=== PATIENT | male | born 1960 | race Caucasian/White ===

== ENCOUNTER 2021-01-28 15:19 | Inpatient (IN) | payer OTHER, BC ==
[~2021-01-28] VITALS: Ht 180.3 cm; Wt 101.2 kg
[~2021-01-28 15:19] MED LIST: ASPIRIN81 MG PO; BUSPAR5 MG PO; CLARITIN10 MG PO; HYDROCODONE BIT1 T11 PO; MOTRIN800 MG PO; TIZANIDINE HCL4 MG PO; XANAX0.5 MG PO
[2021-01-28 15:20] VITALS: BP 110/70
[2021-01-28 20:00] VITALS: BP 108/86
[2021-01-29] VITALS: BP 100/74
[2021-01-29 02:00] VITALS: BP 113/80
[2021-01-29 04:45] VITALS: BP 109/82
== END 2021-01-29 21:39 | DRG 177 ==
LOC: ICCU 15:19
PROVIDERS: ADMIT Internal Medicine; ATTEND Internal Medicine
PROC: 5A09357 Assistance with Respiratory Ventilation, Less than 24 Consecutive Hours, Continuous Positive Airway Pressure (ICD-10-PCS; principal; 2021-01-28)
DX: U07.1 COVID-19 (principal); J12.82 Pneumonia due to coronavirus disease 2019; J96.01 Acute respiratory failure with hypoxia; Z51.5 Encounter for palliative care; I26.99 Other pulmonary embolism without acute cor pulmonale; T79.7XXA Traumatic subcutaneous emphysema, initial encounter; X58.XXXA Exposure to other specified factors, initial encounter; Y93.89 Activity, other specified; Y92.89 Other specified places as the place of occurrence of the external cause; Y99.8 Other external cause status